=== PATIENT | male | born 1970 | race Hispanic/Latino ===

== ENCOUNTER 2020-04-17 10:58 | Emergency (ER) | payer SELFPAY ==
[2020-04-17 12:12] LABS: #Basophils 0.1 thou/uL (0.0-0.2); #Eosinphils 0.2 thou/uL (0.0-0.7); #Lymphocytes 1.7 thou/uL (1.20-3.40); #Monocytes 0.6 thou/uL (0.11-0.59); %Basophils 0.7 % (0.0-1.0); %Eosinophils 2.3 % (0.0-10.0); %Lymphocytes 19.7 % (21.0-51.0); %Monocytes 7.3 % (0.0-10.0); %Neutrophils 69.9 % (42.0-75.0); Hemoglobin 15.5 g/dL (14.0-18.0); Mean Corpuscular HGB CONC 32.7 g/dL (32.0-36.0); Mean Corpuscular Hemoglobin 27.7 pg (27.0-31.0); Mean Corpuscular Volume 84.7 fL (78.0-98.0); Mean Platelet Volume 8.3 fL (7.4-10.4); Platelet Count 221 thou/uL (130-400); Red Blood Cell (RBC) Count 5.58 mill/uL (4.70-6.10); White Blood Cell (WBC) Count 8.5 thou/uL (4.8-10.8)
[2020-04-17] MEDS ORDERED: Iopamidol 370 76% 100 ML VIAL ONE (12:16)
[2020-04-17 12:33] LABS: ALT (SGPT) 19 U/L (8-55); AST (SGOT) 15 U/L (5-34); Albumin 3.8 g/dL (3.5-5.0); Alkaline Phosphatase 122 U/L (40-110); Anion Gap 12 mmol/L (10-20); BUN (Urea Nitrogen) 18 mg/dL (8.9-20.6); Bilirubin, Total 1.4 mg/dL (0.2-1.2); Calc. Creatinine Clearance 0 mL/min (70-130); Calcium 8.4 mg/dL (7.8-10.44); Carbon Dioxide 26 mmol/L (22-29); Chloride 104 mmol/L (98-107); Globulin 3.6 g/dL (2.4-3.5); Glucose 349 mg/dL (70-105); Potassium 3.6 mmol/L (3.5-5.1); Protein, Total 7.4 g/dL (6.0-8.3); Sodium 138 mmol/L (136-145)
--- NOTE | 2020-04-17 13:03 | RAD ---
PORTABLE CHEST 1 VIEW: Date: 04/17/2020 Time: 1114 hours HISTORY: Dyspnea on exertion. FINDINGS: There are no previous exams for comparison. The heart size is enlarged. There are mild hazy patchy opacities in the lung choe. No lobar consoli dation, pneumothoraces, or pleural effusions are seen. There is no evidence of joesph pulmonary edema. There are degenerative changes in the spine. IMPRESSION: Possibility of viral pneumonia cannot be excluded. POS: AH
[2020-04-17 14:11] LABS: CKMB 1.8 ng/mL (0-6.6)
[2020-04-17] MEDS ORDERED: Aspirin Chewable 81 MG TAB ONE (15:53)
[2020-04-17] MEDS ORDERED: cefTRIAXone\\ROCEPHIN 2 GM VIAL ONE (15:53)
[2020-04-17] MEDS ORDERED: Azithromycin 500 MG VIAL ONE (15:53)
--- NOTE | 2020-04-17 16:06 | CT ---
EXAM: CT pulmonary angiogram with IV contrast and 3-D MIP reconstructions CT abdomen and pelvis with IV contrast PROVIDED CLINICAL HISTORY: Shortness of breath, tachycardia, fever COMPARISON: None FINDINGS: There is no evidence for central or segmental pulmonary embolus. The lungs are free of significant opacity. There is a small amount of right pleural fluid. No evidence for pneumothorax. No evidence for thoracic lymph node enlargement. The airway appears patent and of normal caliber. The liver, spleen, pancreas, kidneys and adrenal glands demonstrate an unremarkable CT appearance. Th ere is no bowel dilatation, inflammatory fat stranding, free fluid or free air apparent. The appendix appears normal. The gallbladder is decompressed. The osseous structures demonstrate no concerning lytic or blastic lesions. Multiple bone islands are seen in the pelvis. Lumbarization of the S1 segment is demonstrated, with b ilateral L5 pars defects demonstrated. IMPRESSION: 1. No evidence for central or segmental pulmonary embolus. 2. Small right pleural effusion. 3. No evidence for an acute process involving the abdomen and pelvis.
[2020-04-17 17:12] LABS: CKMB 1.6 ng/mL (0-6.6)
[2020-04-17 22:12] LABS: SARS-CoV-2 MS2 Positive; SARS-CoV-2 N Gene Negative; SARS-CoV-2 S Gene Negative; SARS-CoV-2 by NAA Not Detected (NotDetected); SARS-CoV-2 orf1ab Negative
== END 2020-04-17 17:26 | disposition home or self-care (01) ==
LOC: ERS 10:58
DX: U07.1 COVID-19 (principal); J12.82 Pneumonia due to coronavirus disease 2019; R07.89 Other chest pain; E11.9 Type 2 diabetes mellitus without complications; I10 Essential (primary) hypertension; Z79.84 Long term (current) use of oral hypoglycemic drugs; Z79.899 Other long term (current) drug therapy
CPT/HCPCS: 36415; 71045; 71275; 74177; 80053; 82553; 84484; 85025; 87635; 93005; 96365; 96366; 96367; J0456; J0696; Q9967; U0003

== ENCOUNTER 2020-05-08 06:21 | Inpatient (IN) | payer SELFPAY ==
[2020-05-08 07:12] LABS: #Basophils 0.1 thou/uL (0.0-0.2); #Eosinphils 0.1 thou/uL (0.0-0.7); #Lymphocytes 2.1 thou/uL (1.20-3.40); #Monocytes 0.4 thou/uL (0.11-0.59); #Neutrophils 4.9 thou/uL (1.40-6.50); %Basophils 1.3 % (0.0-1.0); %Lymphocytes 27.4 % (21.0-51.0); %Monocytes 5.2 % (0.0-10.0); %Neutrophils 64.2 % (42.0-75.0); Hemoglobin 15.4 g/dL (14.0-18.0); Mean Corpuscular HGB CONC 32.8 g/dL (32.0-36.0); Mean Corpuscular Hemoglobin 27.3 pg (27.0-31.0); Mean Corpuscular Volume 83.4 fL (78.0-98.0); Mean Platelet Volume 8.5 fL (7.4-10.4); Platelet Count 187 thou/uL (130-400); RBC Distribution Width 14.2 % (11.5-14.5); Red Blood Cell (RBC) Count 5.65 mill/uL (4.70-6.10); White Blood Cell (WBC) Count 7.7 thou/uL (4.8-10.8)
[2020-05-08 07:36] LABS: ALT (SGPT) 18 U/L (8-55); AST (SGOT) 17 U/L (5-34); Albumin 3.7 g/dL (3.5-5.0); Alkaline Phosphatase 115 U/L (40-110); Anion Gap 13 mmol/L (10-20); BUN (Urea Nitrogen) 15 mg/dL (8.9-20.6); Bilirubin, Total 2.1 mg/dL (0.2-1.2); Calc. Creatinine Clearance 0 mL/min (70-130); Calcium 8.6 mg/dL (7.8-10.44); Carbon Dioxide 25 mmol/L (22-29); Chloride 103 mmol/L (98-107); Globulin 3.7 g/dL (2.4-3.5); Glucose 268 mg/dL (70-105); Potassium 3.3 mmol/L (3.5-5.1); Protein, Total 7.4 g/dL (6.0-8.3); Sodium 138 mmol/L (136-145)
[2020-05-08 07:59] LABS: CKMB 1.7 ng/mL (0-6.6)
[2020-05-08] MEDS ORDERED: Aspirin Chewable 81 MG TAB ONE (08:39)
[2020-05-08] MEDS ORDERED: Potassium Chloride 20 MEQ TAB ONE (08:39)
[2020-05-08] MEDS ORDERED: Nitroglycerin 2% Ointment 1 INCH/1 GM Packet ONE (08:39)
[2020-05-08 09:45] LABS: SARS-CoV-2 NAA Rapid Test Not Detected (NotDetected)
[2020-05-08 10:44] LABS: Troponin I 0.111 ng/mL (< 0.028)
[2020-05-08] MEDS ORDERED: HumaLOG 300 UNITS/3 ML VIAL SC PRN (12:04)
[2020-05-08] MEDS ORDERED: Dextrose 50% Abboject 50 ML SYRINGE SLOW IVP PRN (12:04)
[2020-05-08] MEDS ORDERED: Dextrose 5% in Water 1,000 ML IV PRN (12:04)
== END 2020-05-08 12:04 | disposition short-term general hospital (02) | DRG 637 ==
LOC: ERS 06:21 → ERHOLD 08:40
PROVIDERS: ADMIT Internal Medicine; ATTEND Internal Medicine
DX: E11.649 Type 2 diabetes mellitus with hypoglycemia without coma (principal); G93.41 Metabolic encephalopathy; Z20.822 Contact with and (suspected) exposure to COVID-19; E66.01 Morbid (severe) obesity due to excess calories; G47.33 Obstructive sleep apnea (adult) (pediatric); Z99.81 Dependence on supplemental oxygen; Z99.89 Dependence on other enabling machines and devices; Z79.899 Other long term (current) drug therapy; Z79.84 Long term (current) use of oral hypoglycemic drugs
CPT/HCPCS: 0240U; 36415; 71045; 80053; 82553; 83880; 84484; 85025; 93005

== ENCOUNTER 2022-02-18 18:02 | Emergency (ER) | payer OTHER ==
[~2022-02-18 18:02] MED LIST: Iopamidol-370 76% 500 ML 1 ML ONE
[2022-02-18] MEDS ORDERED: Dexamethasone 10 MG/ML VIAL ONE (19:42)
[2022-02-18] MEDS ORDERED: cefTRIAXone\\ROCEPHIN 1 GM VIAL ONE (19:42)
[2022-02-18 22:12] LABS: SARS-CoV-2 NAA Rapid Test Not Detected (NotDetected)
== END 2022-02-18 21:26 | disposition home or self-care (01) ==
LOC: ERS 18:02
DX: J36 Peritonsillar abscess (principal); E11.9 Type 2 diabetes mellitus without complications; I10 Essential (primary) hypertension; Z79.899 Other long term (current) drug therapy; Z79.84 Long term (current) use of oral hypoglycemic drugs; Z20.822 Contact with and (suspected) exposure to COVID-19
CPT/HCPCS: 70491; 96365; 96375; J0696; J1100; Q9967

== ENCOUNTER 2023-05-10 12:09 | Inpatient (IN) | payer BC, OTHER ==
[2023-05-10 12:45] LABS: #Basophils 0.1 thou/uL (0.0-0.2); #Eosinphils 0.1 thou/uL (0.0-0.7); #Monocytes 0.6 thou/uL (0.11-0.59); #Neutrophils 5.1 thou/uL (1.40-6.50); %Basophils 0.9 % (0.0-1.0); %Eosinophils 1.3 % (0.0-10.0); %Lymphocytes 25.2 % (21.0-51.0); %Monocytes 7.1 % (0.0-10.0); %Neutrophils 65.1 % (42.0-75.0); Hematocrit 50.2 % (42.0-52.0); Hemoglobin 16.2 g/dL (14.0-18.0); Mean Corpuscular HGB CONC 32.3 g/dL (32.0-36.0); Mean Corpuscular Hemoglobin 28.1 pg (27.0-31.0); Mean Corpuscular Volume 87.2 fl (78.0-98.0); Mean Platelet Volume 10.5 fL (7.4-10.4); Platelet Count 240 10x3/uL (130-400); RBC Distribution Width 15.7 % (11.5-14.5); Red Blood Cell (RBC) Count 5.76 mill/uL (4.70-6.10); White Blood Cell (WBC) Count 7.8 10x3/uL (4.8-10.8)
[2023-05-10 12:56] LABS: ALT (SGPT) 17 U/L (8-55); AST (SGOT) 19 U/L (5-34); Alkaline Phosphatase 109 U/L (40-110); Anion Gap 13 mmol/L (10-20); BUN (Urea Nitrogen) 17 mg/dL (8.4-25.7); Bilirubin, Total 3.1 mg/dL (0.2-1.2); Calc. Creatinine Clearance 0 mL/min (70-130); Calcium 8.9 mg/dL (7.8-10.44); Carbon Dioxide 25 mmol/L (22-29); Chloride 106 mmol/L (98-107); Estimated GFR 88; Globulin 3.7 g/dL (2.4-3.5); Glucose 172 mg/dL (70-105); Lipase 28 U/L (8-78); Potassium 3.3 mmol/L (3.5-5.1); Protein, Total 7.7 g/dL (6.0-8.3); Sodium 141 mmol/L (136-145)
[2023-05-10 13:03] LABS: Bacteria/HPF None Seen HPF (None Seen); Bilirubin Negative (Negative); Blood, Urine Negative (Negative); CAUTI Indications for Culture Dysuria,urgency,freq; Clarity Clear (Clear); Glucose, Urine (Dipstick) 500 mg/dL (Negative); Ketone, Urine Negative (Negative); Leukocyte Negative Leu/uL (Negative); Nitrite Negative (Negative); Protein, Urine (Dipstick) 200 mg/dL (Neg-Trace); RBC/HPF 0-3 HPF (0-3); Specific Gravity, Urine 1.023 (1.002-1.036); Squamous Epithelial None Seen HPF (0-3); pH, Urine 6.5 (5.0-9.0)
[2023-05-10 13:05] LABS: Urine Culture Reflex No No
[2023-05-10] MEDS ORDERED: Iopamidol-370 76% 500 ML MDV (1 ML CHARGE) ONE (13:08)
[2023-05-10] MEDS ORDERED: Furosemide 40 MG (4 mL) VIAL ONE (14:03)
[2023-05-10] MEDS ORDERED: Potassium Chloride 20 MEQ TAB ONE (14:03)
[2023-05-10] MEDS ORDERED: Nitroglycerin 2% Ointment 1 INCH/1 GM Packet ONE (14:03)
[2023-05-10 14:16] LABS: Troponin I 0.049 ng/mL (< 0.028)
[2023-05-10] MEDS ORDERED: Aspirin Chewable 81 MG TAB ONE (14:36)
[2023-05-10 15:59] LABS: Lactic Acid 1.2 mmol/L (0.5-2.2)
[2023-05-10] MEDS ORDERED: Acetaminophen 325 MG TAB PO PRN (16:19)
[2023-05-10] MEDS ORDERED: Senokot S 8.6-50 MG TAB PO PRN (16:19)
[2023-05-10] MEDS ORDERED: Ondansetron PF 4 MG/2 ML Vial IVP PRN (16:19)
[2023-05-10] MEDS ORDERED: Bisacodyl 10 MG SUPP PR PRN (16:19)
[2023-05-10] MEDS ORDERED: Bisacodyl 5 MG TAB PO PRN (16:19)
[2023-05-10] MEDS ORDERED: Electrolyte Replacement Protocol 1 EACH FS SCH (16:30)
[2023-05-10] MEDS ORDERED: Dextrose 5% in Water 1,000 ML IV PRN (16:38)
[2023-05-10] MEDS ORDERED: Dextrose 50% Abboject 50 ML SYRINGE SLOW IVP PRN (16:38)
[2023-05-10] MEDS ORDERED: HumaLOG 300 UNITS/3 ML VIAL SC PRN (16:38)
[2023-05-10] MEDS ORDERED: Glucagon 1 MG/ML KIT IM PRN (16:38)
[2023-05-10 17:07] LABS: Magnesium 1.9 mg/dL (1.6-2.6)
[2023-05-10 17:12] LABS: Troponin I 0.047 ng/mL (< 0.028)
[2023-05-10 17:29] LABS: Hemoglobin A1c 8.7 % (4.0-6.0)
[2023-05-10] MEDS ORDERED: Magnesium 2 GM/50 ML(in water) 2 GM in Premix 1 BAG IVPB SCH (18:15)
[2023-05-10 20:05] VITALS: BMI 39.7
[2023-05-10] MEDS: Famotidine/PF 20 mg/2ml Vial SLOW IVP SCH (20:11)
[2023-05-10 20:49] LABS: Troponin I 0.042 ng/mL (< 0.028)
[2023-05-11 06:26] LABS: #Basophils 0.1 thou/uL (0.0-0.2); #Eosinphils 0.1 thou/uL (0.0-0.7); #Monocytes 0.4 thou/uL (0.11-0.59); #Neutrophils 4.4 thou/uL (1.40-6.50); %Basophils 0.8 % (0.0-1.0); %Eosinophils 1.8 % (0.0-10.0); %Lymphocytes 22.6 % (21.0-51.0); %Monocytes 6.6 % (0.0-10.0); %Neutrophils 67.9 % (42.0-75.0); Hematocrit 46.8 % (42.0-52.0); Hemoglobin 15.3 g/dL (14.0-18.0); Mean Corpuscular HGB CONC 32.7 g/dL (32.0-36.0); Mean Corpuscular Hemoglobin 28.1 pg (27.0-31.0); Mean Corpuscular Volume 85.9 fl (78.0-98.0); Mean Platelet Volume 10.3 fL (7.4-10.4); Platelet Count 213 10x3/uL (130-400); RBC Distribution Width 15.8 % (11.5-14.5); Red Blood Cell (RBC) Count 5.45 mill/uL (4.70-6.10); White Blood Cell (WBC) Count 6.5 10x3/uL (4.8-10.8)
[2023-05-11 06:42] LABS: INR-International Normal Ratio 1.3; Prothrombin Time 16.1 sec (12.0-14.7)
[2023-05-11 06:43] LABS: PTT 29.3 sec (22.9-36.1)
[2023-05-11 06:54] LABS: ALT (SGPT) 15 U/L (8-55); AST (SGOT) 30 U/L (5-34); Albumin 3.7 g/dL (3.5-5.0); Alkaline Phosphatase 98 U/L (40-110); Anion Gap 13 mmol/L (10-20); BUN (Urea Nitrogen) 16 mg/dL (8.4-25.7); Bilirubin, Total 2.9 mg/dL (0.2-1.2); Calc. Creatinine Clearance 159 mL/min (70-130); Calcium 8.7 mg/dL (7.8-10.44); Carbon Dioxide 22 mmol/L (22-29); Chloride 108 mmol/L (98-107); Cholesterol 116 mg/dl (< 200 Desired); Estimated GFR 105; Globulin 3.8 g/dL (2.4-3.5); Glucose 159 mg/dL (70-105); HDL Cholesterol 29 mg/dL (>60 Neg Risk); LDL Cholesterol, Calculated 64 mg/dL; Magnesium 2.1 mg/dL (1.6-2.6); Potassium 3.7 mmol/L (3.5-5.1); Protein, Total 7.5 g/dL (6.0-8.3); Sodium 139 mmol/L (136-145); Triglycerides 114 mg/dL (Less than 150)
[2023-05-11] MEDS ORDERED: Spironolactone 25 MG TAB PO SCH (08:30)
[2023-05-11] MEDS: Empagliflozin 10 MG TAB PO SCH (08:59)
[2023-05-11] MEDS: Lisinopril 20 MG TAB PO SCH (08:59)
[2023-05-11] MEDS: Spironolactone 25 MG TAB PO SCH (08:59)
[2023-05-11] MEDS ORDERED: Furosemide 40 MG (4 mL) VIAL SLOW IVP SCH (09:00)
[2023-05-11] MEDS: Aspirin Chewable 81 MG TAB PO SCH (09:00)
[2023-05-11] MEDS ORDERED: Carvedilol 6.25 MG TAB PO SCH (09:00)
[2023-05-11] MEDS ORDERED: Lisinopril 20 MG TAB PO SCH (09:00)
[2023-05-11] MEDS: Famotidine/PF 20 mg/2ml Vial SLOW IVP SCH ×2 (09:01→20:31)
[2023-05-11] MEDS: Furosemide 40 MG (4 mL) VIAL SLOW IVP SCH ×2 (09:01→20:31)
[2023-05-11] MEDS: HumaLOG 300 UNITS/3 ML VIAL SC PRN ×2 (09:02→15:03)
[2023-05-11] MEDS: Carvedilol 6.25 MG TAB PO SCH (18:03)
[2023-05-11] MEDS: Rosuvastatin 20 MG TAB PO SCH (20:31)
[2023-05-12 05:19] LABS: #Basophils 0.1 thou/uL (0.0-0.2); #Eosinphils 0.2 thou/uL (0.0-0.7); #Monocytes 0.6 thou/uL (0.11-0.59); #Neutrophils 4.8 thou/uL (1.40-6.50); %Basophils 0.9 % (0.0-1.0); %Eosinophils 2.9 % (0.0-10.0); %Lymphocytes 19.5 % (21.0-51.0); %Monocytes 8.3 % (0.0-10.0); %Neutrophils 68.3 % (42.0-75.0); Hematocrit 45.3 % (42.0-52.0); Hemoglobin 14.7 g/dL (14.0-18.0); Mean Corpuscular HGB CONC 32.5 g/dL (32.0-36.0); Mean Corpuscular Volume 86.3 fl (78.0-98.0); Mean Platelet Volume 10.3 fL (7.4-10.4); Platelet Count 239 10x3/uL (130-400); RBC Distribution Width 15.6 % (11.5-14.5); Red Blood Cell (RBC) Count 5.25 mill/uL (4.70-6.10)
[2023-05-12 05:58] LABS: LDL Cholesterol, Calculated 55 mg/dL
[2023-05-12 06:01] LABS: ALT (SGPT) 15 U/L (8-55); AST (SGOT) 26 U/L (5-34); Albumin 3.4 g/dL (3.5-5.0); Alkaline Phosphatase 88 U/L (40-110); Anion Gap 17 mmol/L (10-20); BUN (Urea Nitrogen) 21 mg/dL (8.4-25.7); Calc. Creatinine Clearance 122 mL/min (70-130); Calcium 8.8 mg/dL (7.8-10.44); Carbon Dioxide 25 mmol/L (22-29); Cardiac Risk 3.9 (Less than 4.5); Chloride 106 mmol/L (98-107); Cholesterol 106 mg/dl (< 200 Desired); Estimated GFR 80; Globulin 3.8 g/dL (2.4-3.5); Glucose 112 mg/dL (70-105); HDL Cholesterol 27 mg/dL (>60 Neg Risk); Magnesium 2.1 mg/dL (1.6-2.6); Potassium 3.7 mmol/L (3.5-5.1); Protein, Total 7.2 g/dL (6.0-8.3); Sodium 144 mmol/L (136-145)
[2023-05-12 06:40] LABS: Triglycerides 96 mg/dL (Less than 150)
[2023-05-12] MEDS: Empagliflozin 10 MG TAB PO SCH (09:33)
[2023-05-12] MEDS: Aspirin Chewable 81 MG TAB PO SCH (09:33)
[2023-05-12] MEDS: Carvedilol 6.25 MG TAB PO SCH ×2 (09:33→17:05)
[2023-05-12] MEDS: Furosemide 40 MG (4 mL) VIAL SLOW IVP SCH ×2 (09:33→21:04)
[2023-05-12] MEDS: Lisinopril 20 MG TAB PO SCH (09:33)
[2023-05-12] MEDS: Famotidine/PF 20 mg/2ml Vial SLOW IVP SCH ×2 (09:34→21:04)
[2023-05-12] MEDS ORDERED: Potassium Chloride 20 MEQ TAB PO SCH (11:30)
[2023-05-12] MEDS ORDERED: Magnesium Sulfate 3 GM in Sodium Chloride 0.9% 100 ML IVPB SCH (13:00)
[2023-05-12] MEDS: HumaLOG 300 UNITS/3 ML VIAL SC PRN (14:21)
[2023-05-12] MEDS: Rosuvastatin 20 MG TAB PO SCH (21:04)
[2023-05-13] MEDS: Lisinopril 20 MG TAB PO SCH (08:41)
[2023-05-13] MEDS: Aspirin Chewable 81 MG TAB PO SCH (08:41)
[2023-05-13] MEDS: Spironolactone 25 MG TAB PO SCH (08:41)
[2023-05-13] MEDS: Carvedilol 6.25 MG TAB PO SCH (08:41)
[2023-05-13] MEDS: Empagliflozin 10 MG TAB PO SCH (08:42)
[2023-05-13] MEDS: Furosemide 40 MG (4 mL) VIAL SLOW IVP SCH (08:43)
[2023-05-13] MEDS: Famotidine/PF 20 mg/2ml Vial SLOW IVP SCH (08:43)
[2023-05-13 15:02] VITALS: BP 113/82; TEMP 98
== END 2023-05-13 15:02 | disposition home or self-care (01) | DRG 291 ==
LOC: ERS 12:09 → SUATTDRO 12:09 → 2SW 16:19 → OBSVTOIN 05-12 08:20
PROVIDERS: ADMIT Family Medicine; ATTEND Family Medicine
DX: I11.0 Hypertensive heart disease with heart failure (principal); I50.23 Acute on chronic systolic (congestive) heart failure; I24.89 Other forms of acute ischemic heart disease; E11.9 Type 2 diabetes mellitus without complications; I42.8 Other cardiomyopathies; E87.6 Hypokalemia; Z79.899 Other long term (current) drug therapy; Z88.8 Allergy status to other drugs, medicaments and biological substances; Z79.82 Long term (current) use of aspirin; Z79.84 Long term (current) use of oral hypoglycemic drugs; K82.8 Other specified diseases of gallbladder; I25.10 Atherosclerotic heart disease of native coronary artery without angina pectoris
CPT/HCPCS: 36415; 36416; 71045; 71275; 74177; 76705; 80053; 80061; 81001; 83036; 83605; 83690; 83735; 83880; 84100; 84443; 84484; 85025; 85610; 85730; 86850; 86900; 86901; 87040; 93005; 93306; 94760; 96365; 96368; 96374; 96375; 96376; 97139; G0378; J1815; J1940; J3475; J3490; Q9967; S0028